=== PATIENT | female | born 1960 | race Caucasian/White ===

== ENCOUNTER 2016-07-06 10:59 | Day surgery (SDC) | payer BC ==
[~2016-07-06] VITALS: Ht 147.3 cm; Wt 50.9 kg
[2016-07-06 12:14] VITALS: Ht 147.3 cm; Wt 50.9 kg
[2016-07-06] MEDS ORDERED: LORA10CA PO (12:21)
[2016-07-06] MEDS ORDERED: ATOR40TA68 PO (12:21)
[2016-07-06 12:45] VITALS: BP 129/61; PULSE 58; RESP 16
[2016-07-06] MEDS ORDERED: FENTAnyl 50 MCG/ML VIAL ONE (14:02)
[2016-07-06] MEDS ORDERED: MIDAZOLAM 1 MG/ML 2 ML INJ ONE (14:03)
[2016-07-06 14:28] VITALS: BP 94/51; PULSE 70; RESP 16
--- NOTE | 2016-07-07 03:47 | GILP ---
DATE OF PROCEDURE: 07/06/2016 PREOPERATIVE DIAGNOSIS: Screening colonoscopy. POSTOPERATIVE DIAGNOSIS: Essentially normal study, normal colonoscopy. DESCRIPTION OF PROCEDURE: The patient was put in left lateral decubitus after obtaining informed co nsent. She was sedated with 2 mg IV Versed and 50 mcg of fentanyl. I advanced an Olympus video col onoscope all the way to cecum. Appendiceal opening and ileocecal valve were identified. Photograph y done. Cecum, ascending colon, transverse colon, descending colon, sigmoid colon, and rectum inclu ding retroflexion essentially normal. Upon removal of scope, the patient had no complication. PLAN: Advise her to have colonoscopy in 10 years. Follow up p.r.n. in my office. The patient will follow up with primary MD. Dictated By: ROBERTH MOBLEY/MARIAMA Conf#: [id number] DID#: [id number] CC: Washington Morales MD;*EndCC*
== END 2016-07-06 16:30 | disposition home or self-care (01) ==
LOC: GIL 10:59
PROVIDERS: ATTEND Internal Medicine
DX: Z12.11 Encounter for screening for malignant neoplasm of colon (principal); E78.5 Hyperlipidemia, unspecified; R10.9 Unspecified abdominal pain; R11.0 Nausea
CPT/HCPCS: 45378; J2250; J3010; Z7610

== ENCOUNTER 2016-11-17 11:45 | Day surgery (SDC) | payer BC ==
[~2016-11-17] VITALS: Ht 149.9 cm; Wt 50.6 kg
[~2016-11-17 11:45] MED LIST: ATOR40TA68 PO; LORA10CA PO
[2016-11-17 12:36] VITALS: Ht 149.9 cm; Wt 50.6 kg
[2016-11-17] MEDS ORDERED: CONSTIPATION MED (12:41)
[2016-11-17] MEDS ORDERED: OMPRAZOLE (12:41)
[2016-11-17] MEDS ORDERED: LIDOCAINE 4% SOLUTION 50 ML BTL ONE (12:56)
[2016-11-17 13:01] VITALS: BP 122/89; PULSE 63; RESP 16
--- NOTE | 2016-11-17 13:11 | OPPN ---
Date/Time of Note Date/Time of Note DATE: 11/17/16 TIME: 13:09 Operative Report Preoperative Diagnosis EPIGASTRIC PAIN NAUSEA/VOMITING Postoperative Diagnosis ANTRAL EROSIONS /GASTRITIS Operation/Procedure Performed EGD RANDOM GASTRIC BIOPSY Provider: ROBERTH CHILDS MD Anesthesia Type: moderate sedation (VERSED 2MG/FENTANYL 50 MCG) Estimated blood loss: none Transfusion Required: no Specimen: none Grafts/Implants: none Complications: no ROBERTH CHILDS MD Nov 17, 2016 1:11 pm
[2016-11-17] MEDS ORDERED: MIDAZOLAM 1 MG/ML 2 ML INJ ONE (13:18)
[2016-11-17] MEDS ORDERED: FENTAnyl 50 MCG/ML VIAL ONE (13:18)
[2016-11-17 13:36] VITALS: BP 99/62; PULSE 60; RESP 12
--- NOTE | 2016-11-17 20:27 | GILP ---
DATE OF PROCEDURE: 11/17/2016 PREOPERATIVE DIAGNOSES: Epigastric pain, nausea and vomiting. POSTOPERATIVE DIAGNOSES: Mild gastritis in the body, erosions, gastritis in the antrum and prepyloric area, duodenal normal PROCEDURES PERFORMED: EGD and random biopsy of the stomach. DESCRIPTION OF PROCEDURE: The patient was put in the left lateral decubitus after obtaining informed consent. She gargled 4 percent xylocaine, and I sedated the patient with 2 mg IV Versed and 50 mcg of fentanyl. I advanced an Olympus video upper endoscope into the esophagus, stomach and the third part of the duodenumt. The duodenum is essentially normal and in the stomach there were erosions and antral gastritis mostly in the antrum, mild gastritis in the body of the stomach noted. The fFundus was unremarkable. Very minimal esophagitis at the GE junction, but not significant. A random biopsy of the stomach was done. The scope was withdrawn. Multiple pictures were taken. PLAN: To await for biopsy report. Continue PPI, and if Helicobacter pylori is present we will treat her full. Meanwhile the patient will be advised to avoid any narcotics as they may be causing some of the nausea and vomiting. Dictated By: Magdy Hoffman MD /[email or web address] /Document#: [id number] ; Washington Morales MD
== END 2016-11-17 15:27 | disposition home or self-care (01) ==
LOC: GIL 11:45
PROVIDERS: ATTEND Internal Medicine
DX: K29.50 Unspecified chronic gastritis without bleeding (principal)
CPT/HCPCS: 43239; 88305; 88312; J2250; J3010; Z7610

== ENCOUNTER 2018-06-14 08:23 | Day surgery (SDC) | payer BC ==
[~2018-06-14] VITALS: Ht 154.9 cm; Wt 51.0 kg
[~2018-06-14 08:23] MED LIST changes: -ATOR40TA68 PO; +CONSTIPATION MED; -LORA10CA PO; +OMPRAZOLE
[2018-06-14] MEDS ORDERED: VITAMINS (09:20)
[2018-06-14] MEDS ORDERED: SINGULAIR (09:20)
[2018-06-14 09:24] VITALS: BP 129/60; PULSE 66; RESP 12; Ht 154.9 cm; Wt 51.0 kg
[2018-06-14] MEDS ORDERED: LIDOCAINE 4% SOLUTION 50 ML BTL ONE (09:36)
[2018-06-14] MEDS ORDERED: FENTAnyl 50 MCG/ML VIAL ONE (10:09)
[2018-06-14] MEDS ORDERED: MIDAZOLAM 1 MG/ML 2 ML INJ ONE ×2 (10:09)
[2018-06-14 10:20] VITALS: BP 101/57; PULSE 64; RESP 15
== END 2018-06-14 15:29 | disposition home or self-care (01) ==
LOC: GIL 08:23
PROVIDERS: ATTEND Internal Medicine Gastroenterology
DX: K29.60 Other gastritis without bleeding (principal)
CPT/HCPCS: 43239; 88305; 88312; J2250; J3010; Z7610